=== PATIENT | female | born 1980 | race Two or more races ===

== ENCOUNTER 2023-05-24 18:00 | Observation (INO) | payer OTHER, SELFPAY ==
[2023-05-24 18:19] VITALS: BP 142/77; PULSE 88
== END 2023-05-24 18:42 | disposition home or self-care (01) ==
PROVIDERS: Admitting Provider Obstetrics & Gynecology; PCP Family Medicine; Visit Provider Obstetrics & Gynecology
DX: O36.8120 Decreased fetal movements, second trimester, not applicable or unspecified (principal); Z3A.00 Weeks of gestation of pregnancy not specified
CPT/HCPCS: 59025; G0379